=== PATIENT | male | born 1990 | race Caucasian/White ===

== ENCOUNTER 2019-07-31 11:09 | Emergency (ER) | payer MEDICAID ==
[~2019-07-31] VITALS: Ht 177.8 cm; Wt 80.0 kg
[2019-07-31] MEDS ORDERED: ACETAMINOPHEN 325MG TABLET PO STA (13:54)
[2019-07-31] MEDS ORDERED: ONDANSETRON 4MG ODT PO STA (13:54)
[2019-07-31 15:21] LABS: BASOPHILS % 0.9 % (0.0-2.0); EOSINOPHILS % 0.2 % (0.0-5.0); HEMATOCRIT. 47.5 % (42.0-52.0); HEMOGLOBIN. 16.3 g/dL (14.0-18.0); INR 1.1; LYMPHOCYTES % 24.9 % (20.0-50.0); MEAN CORPUSCULAR HEMOGLOBIN 32.9 pg (28.0-32.0); MEAN CORPUSCULAR VOLUME 95.9 fL (80.0-94.0); MEAN PLATELET VOLUME 8.1 fl (7.4-10.4); MONOCYTES % 10.9 % (2.0-8.0); NEUTROPHILS % 63.1 % (40.0-76.0); PLATELET 244 x1000/uL (130-400); PROTHROMBIN TIME 11.3 sec (9.6-11.0); RED BLOOD CELL COUNT 4.96 mill/uL (4.7-6.1); RED CELL DISTRIBUTION WIDTH 12.6 % (11.6-14.6)
[2019-07-31 15:22] LABS: CHLORIDE 109 mEq/L (98-107)
[2019-07-31 15:53] VITALS: BP 152/75
== END 2019-07-31 15:55 | disposition home or self-care (01) ==
LOC: ER 11:09
DX: A05.9 Bacterial foodborne intoxication, unspecified (principal); F17.200 Nicotine dependence, unspecified, uncomplicated
CPT/HCPCS: 36415; 80053; 83690; 85025; 85610; 99283; Q0162